=== PATIENT | female | born 1955 | race African-American/Black ===

== ENCOUNTER → 2020-09-12 | Day surgery (SDC) | payer OTHER ==
[~2020-09-12] MED LIST: ADVIL200 M1 PO; CELEBREX **OUT100 MG PO; DICLOFENAC SODI75 MG PO; GABAPENTIN100 MG PO; GABAPENTIN300 MG PO; LISINOPRIL-HCT1 EAC2 PO; NEURONTIN100 MG PO; NEURONTIN300 MG PO; NORCO 5-325 TA1 EAC1 PO; NORCO 5-325 TA1 EACH PO; NORCO 5/3251 EACH PO; OXYCODONE-ACET1 EAC1 PO; PAXIL10 MG PO; PERCOCET 5-3251 EACH PO; ROBAXIN500 MG PO; TEGRETOL200 MG PO; VENTOLIN HFA IN18 GM INH; VITAMIN D250000 UNIT PO
[2020-09-12 06:51] LABS: HCT 36.8 % (37.0-47.0); HGB 12.2 g/dl (12.5-16.0); MCH 30.6 pg (25.0-31.0); MCHC 33.2 g/dL (32.0-36.0); MCV 92.2 fL (78.0-100.0); MPV 9.6 fL (6.0-9.5); RBC 3.99 M/uL (4.20-5.40); RDW 14.5 % (11.5-14.0); WBC 8.5 K/uL (4.0-10.5)
[2020-09-12 07:00] LABS: BILIRUBIN - TOTAL 0.2 mg/dL (0.2-1.0); BUN/CREAT RATIO (CALC) 27.6 RATIO; CREATININE 0.76 mg/dL (0.51-0.95); POTASSIUM 4.2 mmol/L (3.5-5.1)
== END | disposition home or self-care (01) ==
LOC: FAS 05:51
PROVIDERS: Orthopaedic Surgery
DX: S43.431A Superior glenoid labrum lesion of right shoulder, initial encounter (principal); M75.111 Incomplete rotator cuff tear or rupture of right shoulder, not specified as traumatic; M19.011 Primary osteoarthritis, right shoulder; M75.41 Impingement syndrome of right shoulder; M89.211 Other disorders of bone development and growth, right shoulder; X58.XXXA Exposure to other specified factors, initial encounter; E66.01 Morbid (severe) obesity due to excess calories; I10 Essential (primary) hypertension; Z20.822 Contact with and (suspected) exposure to COVID-19; Z98.890 Other specified postprocedural states; Z88.8 Allergy status to other drugs, medicaments and biological substances; Z91.040 Latex allergy status
CPT/HCPCS: 36415; 71045; 80053; J0171; J0690; J1100; J2250; J2405; J2704; J2710; J2795; J3010; J7120

== ENCOUNTER → 2021-06-26 | Day surgery (SDC) | payer OTHER ==
[~2021-06-26] VITALS: Ht 162.6 cm; Wt 95.2 kg
[~2021-06-26] MED LIST changes: +NAPROXEN500 MG PO; +NARCAN4 MG
[2021-06-26 07:20] LABS: ALBUMIN 3.3 g/dL (3.4-5.0); BILIRUBIN - TOTAL 0.3 mg/dL (0.2-1.0); BUN/CREAT RATIO (CALC) 20.7 RATIO; CREATININE 0.92 mg/dL (0.51-0.95); GLOBULIN (CALCULATION) 3.3 g/dL; POTASSIUM 3.9 mmol/L (3.5-5.1); TOTAL PROTEIN 6.6 g/dL (6.4-8.2)
[2021-06-26 07:23] LABS: HCT 41.4 % (37.0-47.0); HGB 13.4 g/dl (12.5-16.0); MCH 29.6 pg (25.0-31.0); MCHC 32.4 g/dL (32.0-36.0); MCV 91.6 fL (78.0-100.0); MPV 9.7 fL (6.0-9.5); RBC 4.52 M/uL (4.20-5.40); RDW 14.4 % (11.5-14.0); WBC 7.4 K/uL (4.0-10.5)
== END | disposition home or self-care (01) ==
LOC: FAS 06:06
PROVIDERS: Orthopaedic Surgery
DX: G56.03 Carpal tunnel syndrome, bilateral upper limbs (principal); I10 Essential (primary) hypertension; J45.909 Unspecified asthma, uncomplicated; G47.33 Obstructive sleep apnea (adult) (pediatric); F17.210 Nicotine dependence, cigarettes, uncomplicated; Z88.6 Allergy status to analgesic agent; Z91.040 Latex allergy status; Z79.899 Other long term (current) drug therapy
CPT/HCPCS: 36415; 71045; 80053; 93005; J1100; J2250; J2405; J2704; J3010; J7120